=== PATIENT | female | born 1985 ===

== ENCOUNTER 2017-08-12 22:54 | Emergency (ER) | payer OTHER ==
[2017-08-12] MEDS ORDERED: Sodium Chloride 0.9% 2.5 ML Syringe FLUSH PRN (23:50)
[2017-08-12] MEDS ORDERED: Sodium Chloride 0.9% 10 ML Syringe FLUSH PRN (23:50)
--- NOTE | 2017-08-12 23:55 | EDM.PDOC ---
ED HPI GENERAL MEDICAL PROBLEM - General Chief Complaint: SANITATION ENGINEER Problem Stated Complaint: PRIVATE AREA/PAIN Time Seen by Provider: 08/12/17 23:32 - History of Present Illness INITIAL COMMENTS - FREE TEXT/NARRATIVE: HISTORY AND PHYSICAL: History of present illness: The patient is a 32-year-old female who delivered a baby at home with a nurse assistant softball coach on , 2 1/2 days ago and presents with the nurse assistant softball coach with complaints of having tissue coming out of her vagina and something coming out of her that was large when she was taking a shower today. According to the report from her assistant softball coach at the bedside she only pushed for 5 minutes and delivered the baby and did have a lot of bleeding prior to the placenta being delivered. She thought this was more than average. The placenta was intact on her evaluation. The patient is breast-feeding and has been doing well with normal lochia and then started having this membrane and tissue passing tonight with this protrude rinse out of her vagina. She has been eating and drinking normally. Patient shows me pictures that she took at home, one of which looks like membranous-like material coming out of her vagina and the second looks almost like cervical prolapse with a large edematous piece of tissue at the introitus. Review of systems: As per history of present illness and below otherwise all systems reviewed and negative. Past medical history: As per history of present illness and as reviewed below otherwise noncontributory. Surgical history: As per history of present illness and as reviewed below otherwise noncontributory. Social history: No reported history of drug or alcohol abuse. Family history: As per history of present illness and as reviewed below otherwise noncontributory. Physical exam: HEENT: Atraumatic, normocephalic, pupils reactive, negative for conjunctival pallor or scleral icterus, mucous membranes moist, throat clear, neck supple, nontender, trachea midline. Lungs: Clear to auscultation, breath sounds equal bilaterally, chest nontender. Heart: S1S2, regular, negative for clicks, rubs, or JVD. Abdomen: Soft, nondistended, nontender. Uterus is firm and just emerging at the pelvic rim and nontender. Negative for masses or hepatosplenomegaly. Negative for costovertebral tenderness. Pelvis: Stable nontender. Genitourinary: There is no gross protrusion of any objects or anatomy from the introitus. There is scant ink serous fluid and material in the vault does not look like tissue and the cervix looks incredibly enlarged and excoriated but there is no gross bleeding. The cervix looks very much like the object that was protruding from her introitus on the picture that the patient showed me. Rectal: Deferred. Extremities: Atraumatic, negative for cords or calf pain. Neurovascular unremarkable. Neuro: Awake, alert, oriented. Cranial nerves II through XII unremarkable. Cerebellum unremarkable. Motor and sensory unremarkable throughout. Exam nonfocal. Skin color overall is very pale but she is not diaphoretic. Diagnostics: CBC pelvic ultrasound for retained products Therapeutics: IV--she refused Please note that according to labor and delivery this patient had been seen before by them and was actually postdates at 43 weeks. She did follow with Yamileth Benz but opted to deliver her baby at home with this nurse assistant softball coach [id number]: I discussed this case with our OB insect control inspector Dr. Kapoor. She feels that she is not concerned about the WBC count as that is not unusual . She feels that the patient should take [id number] iron twice a day for her hemoglobin and continued to have that checked in the clinic. She is aware of the ultrasound results indicating no evidence of retained products and of my physical exam. From the picture the patient showed me and my exam it appears that there is significant laxity and she had some cervical prolapse. Dr. Kapoor said this is not unusual and that over the next few weeks it will improve and should just be monitored in the clinic. I relayed all of this conversation with the patient and the nurse assistant softball coach at bedside Impression: anemia and evaluation stable Definitive disposition and diagnosis as appropriate pending reevaluation and review of above. - Related Data Allergies Allergy/AdvReac Type Severity Reaction Status Date / Time No Known Allergies Allergy Verified 08/12/17 23:55 Home Meds: Home Meds Acetaminophen [Tylenol Extra Strength] 1,000 mg PO Q8H PRN 09/28/13 [History] Vit/Iron Fumarate/FA [ Tablet] 09/28/13 [History] Acetaminophen [Tylenol Extra Strength] 1,000 mg PO Q6H PRN #30 tab 09/30/13 [Rx] Docusate Sodium [Colace] 100 mg PO BID PRN #30 cap 09/30/13 [Rx] Lanolin [Lansinoh HPA] 40 gm TOP ASDIRECTED PRN #1 crm 09/30/13 [Rx] Ibuprofen [Motrin] 800 mg PO Q6H PRN #60 tablet 10/14/15 [Rx] Past Medical History - Past Health History Medical/Surgical History: Denies Medical/Surgical History Neurological History: Reports: Headaches, Chronic Other Neuro History: Migraines - Past Surgical History Respiratory Surgical History: Reports: Pulmonary Vein Stent Female Surgical History: Reports: Breast Biopsy Social & Family History - Family History Cardiac: Reports: Hypertension OBGYN: Reports: Other (See Below) Other OBGYN Family History: ovarian cancer +mother Psychiatric: Reports: Psych Hospitalization(s), Other (See Below) Other Psychiatric Family History: mental illness + mother - Tobacco Use Smoking Status *Q: Never Smoker - Recreational Drug Use Recreational Drug Use: No Drug Use in Last 12 Months: No - Sexual History Sexual History: Reports: Single Partner - Living Situation & Occupation Living situation: Reports: ED ROS GENERAL - Review of Systems Review Of Systems: ROS reveals no pertinent complaints other than HPI. ED EXAM, GENERAL - Physical Exam Exam: See Below (See dictation) Course - Vital Signs Last Recorded V/S: Last Vital Signs Temp 36.7 C 08/12/17 23:16 Pulse 107 H 08/12/17 23:16 Resp 18 08/12/17 23:16 BP 114/72 08/12/17 23:16 Pulse Ox 97 08/12/17 23:16 - Orders/Labs/Meds Orders: Active Orders 24 hr Category Date Time Status Pelvis Non OB Comp [US] Stat Exams 08/12/17 23:50 Taken Sodium Chloride 0.9% [Saline Flush] Med 08/12/17 23:50 Active 10 ml FLUSH ASDIRECTED PRN Sodium Chloride 0.9% [Saline Flush] Med 08/12/17 23:50 Active 2.5 ml FLUSH ASDIRECTED PRN Saline Lock Insert [OM.PC] Stat Oth 08/12/17 23:50 Ordered Medication Orders Sodium Chloride (Saline Flush) 10 ml FLUSH ASDIRECTED PRN PRN Reason: Keep Vein Open Sodium Chloride (Saline Flush) 2.5 ml FLUSH ASDIRECTED PRN PRN Reason: Keep Vein Open Labs: Laboratory Tests 03/11/18 Range/Units 00:18 WBC 20.32 H (4.0-11.0) K/uL RBC 2.89 L (4.30-5.90) M/uL Hgb 8.6 L (12.0-16.0) g/dL Hct 25.3 L (36.0-46.0) % MCV 87.5 (80.0-98.0) fL MCH 29.8 (27.0-32.0) pg MCHC 34.0 (31.0-37.0) g/dL RDW Std Deviation 45.1 (28.0-62.0) fl RDW Coeff of David 14 (11.0-15.0) % Plt Count 209 (150-400) K/uL MPV 8.80 (7.40-12.00) fL Neut % (Auto) 89.3 H (48.0-80.0) % Lymph % (Auto) 4.7 L (16.0-40.0) % [place] % (Auto) 5.9 (0.0-15.0) % Eos % (Auto) 0.0 (0.0-7.0) % Baso % (Auto) 0.1 (0.0-1.5) % Neut # (Auto) 18.2 H (1.4-5.7) K/uL Lymph # (Auto) 1.0 (0.6-2.4) K/uL [place] # (Auto) 1.2 H (0.0-0.8) K/uL Eos # (Auto) 0.0 (0.0-0.7) K/uL Baso # (Auto) 0.0 (0.0-0.1) K/uL Nucleated RBC % 0.0 /100WBC Nucleated RBCs # 0 K/uL Meds: Medications Generic Name Dose Route Start Last Admin Trade Name Freq PRN Reason Stop Dose Admin Sodium Chloride 10 ml 08/12/17 23:50 Saline Flush FLUSH ASDIRECTED PRN Keep Vein Open Sodium Chloride 2.5 ml 08/12/17 23:50 Saline Flush FLUSH ASDIRECTED PRN Keep Vein Open Departure - Departure Time of Disposition: 01:30 Disposition: Home, Self-Care 01 Condition: Good Clinical Impression: abnormality of cervix, anemia - Discharge Information Referrals: Yamileth Benz CNM [Primary Care Provider] - Forms: ED Department Discharge Additional Instructions: The following information is given to patients seen in the emergency department who are being discharged to home. This information is to outline your options for follow-up care. We provide all patients seen in our emergency department with a follow-up referral. The need for follow-up, as well as the timing and circumstances, are variable depending upon the specifics of your emergency department visit. If you don't have a primary care physician on staff, we will provide you with a referral. We always advise you to contact your personal physician following an emergency department visit to inform them of the circumstance of the visit and for follow-up with them and/or the need for any referrals to a consulting specialist. The emergency department will also refer you to a specialist when appropriate. This referral assures that you have the opportunity for followup care with a specialist. All of these measure are taken in an effort to provide you with optimal care, which includes your followup. Under all circumstances we always encourage you to contact your private physician who remains a resource for coordinating your care. When calling for followup care, please make the office aware that this follow-up is from your recent emergency room visit. If for any reason you are refused follow-up, please contact the [facility] emergency department at and ask to speak to the emergency department charge nurse. [facility] Primary care-[facility] [place] [address]. [address] [address] Please contact and followed up with Yamileth Benz in the clinic to have your blood count repeated and take [id number] iron supplementation twice a day. Push hydration a healthy meals. Try to reduce any pelvic stress. Keep your follow-up appointment and if you do not have one please make an appointment reevaluation of symptoms he presented here in the ED with - My Orders Last 24 Hours: My Active Orders 08/12/17 23:50 Pelvis Non OB Comp [US] Stat Sodium Chloride 0.9% [Saline Flush] 10 ml FLUSH ASDIRECTED PRN Sodium Chloride 0.9% [Saline Flush] 2.5 ml FLUSH ASDIRECTED PRN Saline Lock Insert [OM.PC] Stat - Assessment/Plan Last 24 Hours: My Active Orders 08/12/17 23:50 Pelvis Non OB Comp [US] Stat Sodium Chloride 0.9% [Saline Flush] 10 ml FLUSH ASDIRECTED PRN Sodium Chloride 0.9% [Saline Flush] 2.5 ml FLUSH ASDIRECTED PRN Saline Lock Insert [OM.PC] Stat
[2017-08-13 01:35] VITALS: BP 102/66
--- NOTE | 2017-08-14 15:10 | US ---
EXAM DATE: 08/12/17 PATIENT'S AGE: 32 Patient: RICKIE CHARLES Facility: [place], [place] Site . Site : 1985 Study: US Pelvis [id number] 12:44:15 AM Ordering Physician: Torres Morgan Final Report: INDICATION: , evaluate for retained products of conception TECHNIQUE: Ultrasound pelvis transabdominal and transvaginal for better assessment or to better visualize the endometrium. Real time sonographic images with Spectral and color Doppler imaging of the ovaries were obtained. COMPARISON: None FINDINGS: Uterus: 16.3 centimeters x 6.7 centimeters x 8.2 centimeters. Normal echotexture of the myometrium. No masses. Endometrium: Transvaginal imaging was performed to better evaluate the endometrium. 11 mm in thickness. No sign of endometrial mass or fluid. Right ovary: 3.5 centimeters x 1.7 centimeters x 2.1 centimeter. No ovarian or adnexal masses. Normal arterial and venous blood flow. Left ovary: 2.4 centimeter x 2.2 centimeter x 2.1 centimeter. No ovarian or adnexal masses. Normal arterial and venous blood flow. Cul-de-sac: No significant free fluid. IMPRESSION: appearing uterus. No definitive sonographic evidence for retained products conception. Dictated by Loco Saenz MD @ 08/13/2017 1:14:59 AM Dictated by: Loco Saenz MD @ 08/13/2017 01:15:13 (Electronic Signature) Report Signed by Proxy. [email or web address]
== END 2017-08-13 01:45 | disposition home or self-care (01) ==
LOC: MW.ED 22:54
DX: O90.81 Anemia of the puerperium (principal); O99.89 Other specified diseases and conditions complicating pregnancy, childbirth and the puerperium; N88.8 Other specified noninflammatory disorders of cervix uteri
CPT/HCPCS: 36415; 76856; 76856-26; 85025; 99284; 99284-25